=== PATIENT | female | born 1945 | race Caucasian/White ===

== ENCOUNTER → 2021-10-22 | Outpatient (REF) | payer MEDICARE ==
[2021-10-22 17:41] LABS: APPEARANCE, URINE CLEAR (CLEAR); BACTERIA, URINE AUTO NEGATIVE (NEGATIVE); BILIRUBIN, URINE AUTO NEGATIVE (NEGATIVE); BLOOD, URINE BLOOD NEGATIVE (NEGATIVE); COLOR, URINE STRAW (YELLOW); GLUCOSE, URINE (UA) AUTO NEGATIVE (NEGATIVE); KETONE, URINE AUTO NEGATIVE (NEGATIVE); LEUKOCYTE ESTERASE, URINE AUTO NEGATIVE (NEGATIVE); NITRITE, URINE AUTO NEGATIVE (NEGATIVE); PROTEIN, URINE AUTO NEGATIVE (NEGATIVE); RBC, URINE AUTO 0 /HPF (0-3); SPECIFIC GRAVITY URINE AUTO 1.015 (1.002-1.035); SQUAMOUS EPITHELIAL CELL UR AU 1 /HPF (0-6); UROBILINOGEN, URINE AUTO 0.2 mg/dL (0.0-2.0); WBC, URINE AUTO 3 /HPF (0-3)
== END ==
LOC: M SMT 16:45
PROVIDERS: ATTEND Urology
DX: R31.0 Gross hematuria (principal)
CPT/HCPCS: 81001; 88108; G0463

== ENCOUNTER → 2025-07-02 | Outpatient (CLI) | payer MEDICARE ==
[~2025-07-02] MED LIST: D 101000 PO; FOLBTAB3; LEVO100T5; LIDOCAINE 1% MDV 20 ML VIAL SC SCH; METO1TAB32; OMEP40CA5; PARO20TA3; REST0.05; TRIA37.577; XARE20TA
[2025-07-02 08:40] VITALS: TEMP 97.3
[2025-07-02 09:30] VITALS: BP 135/75; O2SAT 98
[2025-07-02 09:57] LABS: BASO # 0.1 10^3/uL (0.0-0.2); BASO % 1.9 % (0.0-1.0); EOS # 0.2 10^3/uL (0.0-0.5); EOS % 7.0 % (0.0-3.0); LYMPH # 1.2 10^3/uL (1.5-5.0); LYMPH % 36.6 % (24.0-44.0); MONO # 0.2 10^3/uL (0.0-0.8); MONO % 6.1 % (2.0-8.0); NEUTROPHILS # 1.5 10^3/uL (1.5-8.5); NEUTROPHILS % 46.8 % (36.0-66.0); PLATELET COUNT, AUTOMATED 127 10^3/uL (150-450)
== END ==
LOC: M IRPRO 08:28
PROVIDERS: ATTEND Internal Medicine Medical Oncology
DX: D69.6 Thrombocytopenia, unspecified (principal)